=== PATIENT | female | born 1980 | race African-American/Black ===

== ENCOUNTER 2023-11-26 12:31 | Emergency (ER) | payer OTHER, SELFPAY ==
--- NOTE | ~2023-11-26 | CT_ITS ---
EXAMINATION: CT ABDOMEN AND PELVIS WITHOUT CONTRAST CLINICAL INFORMATION: Dysuria, back pain COMPARISON: None available. TECHNIQUE: Multidetector volumetric imaging was performed from the superior aspect of the liver through the pubic symphysis. Sagittal and coronal reformatted images were obtained on the technologist's workstation. This CT examination was performed using dose optimization techniques as appropriate, variously including the following: *Automated exposure control *Adjustment of mA and/or kV according to patient size (this includes techniques or standardized protocols for targeted exams where dose is matched to indication/reason for exam; i.e. extremities or head) *Use of iterative reconstruction technique DLP: 552 mGy-cm FINDINGS: LUNG BASES: Unremarkable. ABDOMINAL AND PELVIC WALL: Few midline fat-containing ventral hernias. LIVER AND BILIARY TREE: Few scattered small hepatic cysts. Liver is enlarged measuring 21.1 cm in span. GALLBLADDER: Cholelithiasis without evidence of acute cholecystitis. PANCREAS: Unremarkable. SPLEEN: Unremarkable. ADRENAL GLANDS: Unremarkable. KIDNEYS AND URETERS: Lack of intravenous contrast limits evaluation for pyelonephritis. No hydronephrosis or nephrolithiasis. GASTROINTESTINAL TRACT: Colonic diverticulosis without evidence of diverticulitis. Appendix is not identified with certainty however there are no other findings to suggest appendicitis. VASCULAR: Unremarkable. LYMPH NODES/PERITONEUM: No lymphadenopathy. FREE FLUID: None. BLADDER: Urinary bladder wall thickening with infiltration of the perivesicular fat, recommend correlation with urinalysis and symptoms of cystitis. PELVIC VISCERA: Myomatous uterus. OSSEOUS STRUCTURES: A few small sclerotic densities in the pelvis which may reflect bone islands. CT/CT abdomen pelvis wo IV con IMPRESSION: 1. Urinary bladder wall thickening with infiltration of the perivesicular fat, recommend correlation with urinalysis and symptoms of cystitis. Lack of intravenous contrast limits evaluation for pyelonephritis. 2. Hepatomegaly. 3. Cholelithiasis without evidence of acute cholecystitis. 4. Myomatous uterus. Electronically signed by: Ninfa Au MD 11/26/2023 04:07 PM EDT
[2023-11-26 13:05] VITALS: BP 148/95; PULSE 75; RESP 16; TEMP 36.6; O2SAT 100; BMI 29.1
--- NOTE | 2023-11-26 13:05 | ED.GENADULT ---
HPI - General Adult General Chief complaint: Urogenital-Female Stated complaint: Vaginal discomfort Time Seen by Provider: 11/26/23 16:03 Source: patient and family Mode of arrival: ambulatory Limitations: no limitations History of Present Illness ED Provider: Dr. Darshan Priest HPI narrative: 42-year-old female with no significant past medical history who presents emergency department for evaluation 2 months of urinary frequency, dysuria and incontinence. Patient states that she had a telehealth visit and was diagnosed with urinary tract infection and took a 3 day course of antibiotics which did improve her symptoms while she was on the antibiotics but then her symptoms returned. She states that since that time she has been very busy in his not been able to see her primary care doctor. She states that her symptoms got worse today where she was urinating every 5-10 minutes, she feels a pressure in her lower abdomen. She also feels pressure in her back therefore she came to the emergency department for evaluation. She also states she has had chills. She has been taking Pyridium and ibuprofen for her symptoms. She denied nausea, vomiting or diarrhea. She denied vaginal discharge. Related Data Previous Rx's ?Medication ?Instructions ?Recorded cefuroxime axetil 250 mg tablet 250 mg PO Q12H 10 days #20 tabs 11/26/23 Allergies Allergy/AdvReac Type Severity Reaction Status Date / Time aspirin Allergy Unknown Verified 11/26/23 13:08 Review of Systems Review of Systems: Yes all other systems are reviewed and are negative [facility] Social History Social History Advance Directives: No Advance Directives Information Provided: No Do you have a plan to hurt others: No Plan Physical Exam ED Vital Signs: Vital Signs - 24 hr 11/26/23 13:05 Temperature 97.8 F Pulse Rate 75 Respiratory Rate 16 Blood Pressure 148/95 H Pulse Oximetry 100 Oxygen Delivery Method Room Air BMI result Body Mass Index 29.1 Vital signs did reveal an elevated blood pressure of 148/95 otherwise unremarkable Exam: General: Awake, alert in no distress Head: Normocephalic, atraumatic EENT: PERRL, Lids normal, sclera normal, conjunctiva normal, nose normal , ears normal, throat without erythema or exudates Neck: Supple, no adenopathy Lung: breath sounds symmetric, no wheezing, rales or rhonchi Chest: symmetric movement, nontender Heart: regular rate and rhythm, normal S1, S2 no murmurs or rubs Abdomen: soft, moderate suprapubic tenderness, no rebound, no voluntary or involuntary guarding, normoactive bowel sounds Back: no vertebral tenderness, moderate left CVA tenderness Extremities: no deformities, moves all extremities symmetrically Neuro: Awake, alert, oriented, normal speech Course Course Course Narrative: This is an RME performed by Salvador Cuevas FRENCH DRAWER: Additional HPI, ROS, PE not included below will be deferred to primary provider. Patient is a 42-year-old female presents emergency department with a expressed concern for a bladder infection 2 months. Reports that she did a telehealth visit where she was prescribed an antibiotic, does not recall the name, and Pyridium but reports no change in her symptoms. Reports that she has suprapubic pain and diffuse lower back pain. She has been experiencing urinary incontinence she is unable to control it. Endorsing severe dysuria. States her urine is very cloudy. Denies vaginal discharge or bleeding. LMP 3 weeks ago. Endorses having ongoing chills, not checked a temperature, using ibuprofen around the clock. Denies nausea or vomiting. Denies concern for sexually transmitted infections Plan: Labs, urinalysis Medical Decision Making Medical Decision Making MDM Narrative: 42-year-old female with no significant past medical history who presents emergency department for evaluation 2 months of urinary frequency, dysuria and incontinence associated with chills, suprapubic pain and left flank pain with no vaginal discharge. Patient did complete a 3 day course of antibiotics with a proximally 3-4 days of improvement after finishing the antibiotics but since that time she has had persistent symptoms. She was not been able to see her PCP and was concerned that her symptoms are getting worse today so she came to the emergency department for evaluation. Differential diagnosis: ?Includes but is not limited to cystitis, pyelonephritis, urethritis, pelvic infection, electrolyte abnormalities, anemia Following evaluation was ordered: CBC, CMP, urinalysis, urine test, CT scan of the abdomen pelvis without IV contrast Patient was initially treated with the following: Ibuprofen 400 mg orally, cefuroxime 250 mg orally Course: 16:42 The patient's urinalysis was consistent with a urinary tract infection. The CT scan of the abdomen pelvis did reveal bladder inflammation consistent with acute cystitis with no other findings to explain her symptoms. She does have hepatomegaly and she does drink alcohol several times a week and I told her that she should stop drinking and she will need to follow up with her PCP to discuss the hepatomegaly. Patient's LFTs are normal at this time. Patient also has gallstones and she was aware of this. Patient was started on cefuroxime 250 mg q.12 hours for 10 days. She was also advised to take ibuprofen 400 mg 3 times a day as needed for pain. She was given printed and verbal instructions and discharged home. Admission/Observation Consideration of admission/observation: Escalation of care including admission/observation considered (Yes) Lab Data MDM Lab Attestation statement: I reviewed the patient's lab results. My interpretation patient's laboratory evaluation as follows: CBC was normal. CMP revealed an elevated BUN of 19 and elevated chloride of 112. Creatinine was normal 0.7. Urinalysis was positive for blood, protein and leukocyte esterase. Microscopic revealed 6-10 RBCs, greater than 50 WBCs and 4+ bacteria -this is consistent with urinary tract infection . Urine test was negative. 11/26/23 13:23 11/26/23 13:23 Labs: Lab Results 11/26/23 11/26/23 Range/Units 13:23 13:24 WBC 9.8 (4.8-10.8) X10*3/uL RBC 4.16 L (4.20-5.50) X10*6/uL Hgb 13.6 (12.0-16.0) g/dl Hct 39.7 (37.0-47.0) % MCV 95.4 (80.0-98.0) fL MCH 32.7 (27.0-33.0) pg MCHC 34.3 (31.0-35.0) g/dl RDW 12.5 (11.0-16.0) % Plt Count 367 (160-400) X10*3/uL MPV 9.7 (9.4-12.3) fL Immature Gran % (Auto) 0.5 H (0.0-0.4) % Neut % (Auto) 67.0 (45-73) % Lymph % (Auto) 20.0 (20-40) % Henry % (Auto) 8.2 (2-11) % Eos % (Auto) 3.2 (0-4) % Baso % (Auto) 1.1 (0-2) % Lymph # (Auto) 2.0 (1.2-4.9) X10*3/uL Henry # (Auto) 0.8 (0.1-1.2) X10*3/uL Eos # (Auto) 0.3 (0.0-0.4) X10*3/uL Baso # (Auto) 0.1 (0.0-0.2) X10*3/uL Abs Immat Gran (auto) 0.05 H (0.00-0.03) X10*3/uL Absolute Neuts (auto) 6.5 (2.0-8.3) x10*3/uL Absolute Nucleated RBC 0.000 (0.0-0.012) X10*3/uL Nucleated RBC % (auto) 0.0 (0.0-0.2) /100WBC Sodium 141 (135-145) mmol/L Potassium 4.2 (3.3-5.1) mmol/L Chloride 112 H (96-108) mmol/L Carbon Dioxide 22 (22-29) mmol/L Anion Gap 11 L (12-20) BUN 19 H (9-16) mg/dL Creatinine 0.70 (0.5-1.4) mg/dL Estim Creat Clear Calc 107.9 Estimated GFR > 60 Random Glucose 98 (60-115) mg/dL Calcium 9.3 (8.4-10.2) mg/dL Total Bilirubin 0.4 (0.0-1.0) mg/dL AST 12 (5-31) U/L ALT 18 (0-31) U/L Alkaline Phosphatase 50 (39-117) U/L Total Protein 6.7 (6.5-8.0) g/dL Albumin 4.1 (3.5-5.0) g/dL Urine Color Yellow Urine Appearance Turbid Urine pH 5.5 (5.0-9.0) Ur Specific [place] 1.020 (1.005-1.025) Urine Protein 100 (2+) H (Neg-Trace) mg/dL Urine Glucose (UA) Negative (Negative) mg/dL Urine Ketones Negative (Negative) mg/dL Urine Blood Small (1+) H (Negative) Urine Nitrite Negative (Negative) Ur Leukocyte Esterase Large (3+) H (Negative) Urine RBC 6-10 H (0-2) /HPF Urine WBC >50 H (0-5) /HPF Ur Squamous Epith Cells 3-5 (0-2) /HPF Urine Bacteria 4+ (None Seen) Hyaline Casts 0-2 (0-2) /LPF Urine Test NEGATIVE (NEGATIVE) Radiology Impression Discussion of test interpretation with radiology: I have reviewed the radiologist's reading. Radiologist Impression: CT abdomen pelvis wo IV con IMPRESSION: 1. Urinary bladder wall thickening with infiltration of the perivesicular fat, recommend correlation with urinalysis and symptoms of cystitis. Lack of intravenous contrast limits evaluation for pyelonephritis. 2. Hepatomegaly. 3. Cholelithiasis without evidence of acute cholecystitis. 4. Myomatous uterus. Dictated By: Ninfa uA MD Independent Historian Clinical information obtained from an independent historian. History obtained from or confirmed by: Spouse Prescription Management I considered prescription management with: Antibiotic Discharge Plan Discharge Clinical Impression: Bladder infection, acute Patient Disposition: Home, Self-Care Instructions: Acute Urinary Retention in Women (ED) Additional Instructions: Your blood work was unremarkable, your kidney function and liver tests were normal. Your urine tests were consistent with a urinary tract infection, you had greater than 50 white blood cells and 4+ bacteria in your urine. Your urine test was negative CT scan of your abdomen pelvis without IV contrast did reveal inflammation of your bladder which is consistent with a bladder infection and this is also supported by your urine test. Take cefuroxime 250 mg pills, 1 pill every 12 hours for 10 days. Take ibuprofen 200 mg pills, 2 pills every 6 hours as needed for pain or fever. Take Tylenol (acetaminophen) 500 mg pills, 2 pills every 6 hours as needed for pain or fever. Follow-up with your doctor in 2 days. Please return to the emergency department if your symptoms get worse or if you develop any symptoms that are concerning to you. The CT scan did reveal 3 other incidental findings which include a large liver, stones in your gallbladder and fibroids in her uterus. You should discuss these findings with your primary care doctor. You doctor may want to follow your liver tests to make sure that you are not developed beginning liver damage. It is very important that you stop drinking alcohol since this could be a cause of your large liver and can lead to cirrhosis of the liver if you continue to drink. You can check your urine culture results on the patient portal, bacteria usually takes 3-4 days to grow out of your urine. If you develop a bacteria that is resistant to cefuroxime (this is a cephalosporins similar to ceftriaxone and cephalexin), the emergency department should contact you and change the medication. CT abdomen pelvis wo IV con IMPRESSION: 1. Urinary bladder wall thickening with infiltration of the perivesicular fat, recommend correlation with urinalysis and symptoms of cystitis. Lack of intravenous contrast limits evaluation for pyelonephritis. 2. Hepatomegaly. 3. Cholelithiasis without evidence of acute cholecystitis. 4. Myomatous uterus. Electronically signed by: Ninfa Au MD 11/26/2023 04:07 PM EDT RP Dictated By: Ninfa Au MD Signed By: <Electronically signed by Ninfa Au MD in OV> Prescriptions: New cefuroxime axetil 250 mg tablet 250 mg PO Q12H 10 Days Qty: 20 0RF Print Language: Amharic
[2023-11-26 13:29] LABS: MANUAL DIFF FLAG NO
[2023-11-26 13:31] LABS: Basophils Absolute Auto 0.1 X10*3/uL (0.0-0.2); Basophils Percent Auto 1.1 % (0-2); Eosinophils Absolute Auto 0.3 X10*3/uL (0.0-0.4); Eosinophils Percent Auto 3.2 % (0-4); Hematocrit 39.7 % (37.0-47.0); Hemoglobin 13.6 g/dl (12.0-16.0); Imm Gran Abs Auto 0.05 X10*3/uL (0.00-0.03); Imm Gran Pct Auto 0.5 % (0.0-0.4); Mean Corpuscular HGB Conc 34.3 g/dl (31.0-35.0); Mean Corpuscular Hemoglobin 32.7 pg (27.0-33.0); Mean Corpuscular Volume 95.4 fL (80.0-98.0); Mean Platelet Volume 9.7 fL (9.4-12.3); Monocytes Absolute Auto 0.8 X10*3/uL (0.1-1.2); Monocytes Percent Auto 8.2 % (2-11); Neutrophils Absolute Auto 6.5 x10*3/uL (2.0-8.3); Platelet Count 367 X10*3/uL (160-400); Red Blood Count 4.16 X10*6/uL (4.20-5.50); Red Cell Distribution Width 12.5 % (11.0-16.0); White Blood Count 9.8 X10*3/uL (4.8-10.8)
[2023-11-26 13:32] LABS: Appearance Urine Turbid; Color Urine Yellow; Glucose Urine UA Negative (Negative); Leukocyte Esterase Urine Large (3+) (Negative); Nitrite Urine Negative (Negative); PH 5.5 (5.0-9.0); UMIC TRIGGER UACC YES; UPreg QC Valid YES; Urine Blood Small (1+) (Negative); Urine Ketones Negative (Negative); Urine Pregnancy NEGATIVE (NEGATIVE); Urine Protein 100 (2+) mg/dL (Neg-Trace)
[2023-11-26 13:36] LABS: Bacteria Urine 4+ (None Seen); Hyaline Casts Urine 0-2 /LPF (0-2); UACC Culture Trigger YES; WBC Urine >50 /HPF (0-5)
[2023-11-26 13:47] LABS: Alanine Aminotransferase 18 U/L (0-31); Albumin Level 4.1 g/dL (3.5-5.0); Alkaline Phosphatase 50 U/L (39-117); Anion Gap 11 (12-20); Aspartate Amino Transferase 12 U/L (5-31); Bilirubin Total 0.4 mg/dL (0.0-1.0); Blood Urea Nitrogen 19 mg/dL (9-16); Calcium 9.3 mg/dL (8.4-10.2); Carbon Dioxide 22 mmol/L (22-29); Chloride 112 mmol/L (96-108); Creatinine Clr Calc Pharmacy 107.9; Estimated Glomerular Filt Rate > 60; Glucose Random 98 mg/dL (60-115); Potassium 4.2 mmol/L (3.3-5.1); Sodium 141 mmol/L (135-145); Total Protein 6.7 g/dL (6.5-8.0)
[2023-11-26 16:43] VITALS: BP 138/83; PULSE 54; RESP 20; TEMP 36.7; O2SAT 100
[2023-11-26] MEDS: cefuroxime axetiL 250 MG TABLET PO (17:15)
[2023-11-26] MEDS: Ibuprofen 400 MG TABLET PO (17:15)
--- NOTE | 2023-11-26 17:20 | PC.NURSE ---
no change in assessment from triage. sx increase with ambulation/standing. ismore comfortable in bed. eager to leave and find real food . will continue to push PO fluids.
[2023-11-26 17:22] VITALS: BP 138/83; PULSE 54; RESP 20; TEMP 36.7; O2SAT 100
== END 2023-11-26 17:22 | disposition home or self-care (01) ==
PROVIDERS: Nurse Practitioner Family; Emergency Provider Emergency Medicine Emergency Medical Services
DX: N30.90 Cystitis, unspecified without hematuria (principal); R10.2 Pelvic and perineal pain; R35.0 Frequency of micturition; R30.0 Dysuria; R32 Unspecified urinary incontinence; Z79.899 Other long term (current) drug therapy
CPT/HCPCS: 36415; 74176; 80053; 81001; 81025; 85025; 87086; 87088; 87186; 99284

== ENCOUNTER 2024-05-22 17:10 | Emergency (ER) | payer OTHER, SELFPAY ==
[2024-05-22 17:20] VITALS: BP 127/55; PULSE 90; RESP 19; TEMP 37.2; O2SAT 98; BMI 28.6
--- NOTE | 2024-05-22 17:20 | ED_ITS ---
HPI - General Adult General Chief complaint: Upper Respiratory Symptoms Stated complaint: fever 103, dizzy, impaired vision Time Seen by Provider: 05/22/24 20:15 Source: patient, RN notes reviewed and old records reviewed Mode of arrival: ambulatory Limitations: no limitations History of Present Illness ED Provider: Ja CHAUDHRY narrative: 43-year-old female presents for evaluation of multiple complaints including body aches, congestion, cough, fevers, dizziness and headache. Her symptoms started yesterday and worsened throughout the day today. Patient denies any sick contacts. She endorses nausea, vomiting Patient reports her pain as a 12/20 Related Data Previous Rx's ?Medication ?Instructions ?Recorded cefuroxime axetil 250 mg tablet 250 mg PO Q12H 10 days #20 tabs 11/26/23 oseltamivir 75 mg capsule (Tamiflu) 75 mg PO Q12H 5 days #10 caps 05/22/24 Allergies Allergy/AdvReac Type Severity Reaction Status Date / Time aspirin Allergy Unknown Verified 05/22/24 17:22 Review of Systems 2 Constitutional: Constitutional: Reports body ache(s), Reports chills, Reports fever(s), Reports headache(s), Reports lethargy, Reports malaise and Reports weakness ENT: Reports headache(s) and Reports sore throat Cardiovascular: Cardiovascular: Denies chest pain and Denies dyspnea Respiratory: Respiratory: Reports cough and Denies dyspnea Gastrointestinal: Gastrointestinal: Denies abdominal pain, Reports diarrhea, Reports nausea and Reports vomiting Musculoskeletal: Musculoskeletal: Reports back pain and Reports myalgias Integumentary/Breasts: Skin/Breast: Denies rash Neurologic: Reports headache(s) and Reports weakness PMFSH Social History Social History Advance Directives: No Advance Directives Information Provided: Yes Do you have a plan to hurt others: No Plan Physical Exam ED Vital Signs: Vital Signs - 24 hr 05/22/24 17:20 05/22/24 20:17 05/22/24 20:26 Temperature 99 F 98 F 98 F Pulse Rate 90 81 81 Respiratory Rate 19 19 19 Blood Pressure 127/55 L 121/73 121/73 Pulse Oximetry 98 98 98 Oxygen Delivery Method Room Air Room Air BMI result Body Mass Index 28.6 Const General: healthy appearing, comfortable, no acute distress, alert and awake Nutritional Appearance: well nourished Orientation/consciousness: patient oriented x3 HENMT Head: Yes normocephalic and Yes atraumatic Eyes Eyelids: Yes eyelids normal Conjunctivae: conjunctivae normal Sclerae: sclerae normal Corneas: corneas normal Pupils: Equal, round and reactive pupils present EOM: EOMs intact bilaterally Neck Neck: Yes full ROM Resp Effort & Inspection: normal respiratory effort, able to speak in complete sentences and not labored Cardio Rate: regular rate Rhythm: regular rhythm Skin General skin exam: elasticity normal Neuro General: patient oriented x3 Cranial nerves: Yes Equal, round and reactive pupils present and Yes Bilaterally intact EOM present Cognition (Neuro): normal cognition Extrem Other: Moving all extremities well without any obvious deformities Course Course Course Narrative: RME, this is a rapid medical exam performed by Dmitry Peres please refer to primary provider for complete H&P- 43 year old female presents for evaluation of fevers as high as 103, body aches, cough, weakness and headaches. She endorses pain all over as well as blurry vision. She took a negative COVID test at home. She also states her granddaughter was sick recently. She is afebrile in triage. Plan for labs and viral swabs Medical Decision Making Medical Decision Making [facility] Narrative: 43-year-old healthy female presents for evaluation of multiple complaints that are consistent with a viral illness. She had labs, viral testing which was significant for influenza B. This does explain all of her symptoms. She reports fevers at home but is afebrile in triage. She is not tachycardic or hypotensive. Differential Diagnosis Differential Diagnoses: The differential diagnosis associated with the presentation includes Influenza COVID-19 GAYLE Gastroenteritis Lab Data 05/22/24 18:02 05/22/24 18:02 Labs: Lab Results 05/22/24 Range/Units 18:02 WBC 5.1 (4.8-10.8) X10*3/uL RBC 4.25 (4.20-5.50) X10*6/uL Hgb 13.7 (12.0-16.0) g/dl Hct 39.3 (37.0-47.0) % MCV 92.5 (80.0-98.0) fL MCH 32.2 (27.0-33.0) pg MCHC 34.9 (31.0-35.0) g/dl RDW 12.3 (11.0-16.0) % Plt Count 277 (160-400) X10*3/uL MPV 9.9 (9.4-12.3) fL Immature Gran % (Auto) 0.4 (0.0-0.4) % Neut % (Auto) 70.7 (45-73) % Lymph % (Auto) 12.2 L (20-40) % [place] % (Auto) 15.7 H (2-11) % Eos % (Auto) 0.4 (0-4) % Baso % (Auto) 0.6 (0-2) % Lymph # (Auto) 0.6 L (1.2-4.9) X10*3/uL [place] # (Auto) 0.8 (0.1-1.2) X10*3/uL Eos # (Auto) 0.0 (0.0-0.4) X10*3/uL Baso # (Auto) 0.0 (0.0-0.2) X10*3/uL Abs Immat Gran (auto) 0.02 (0.00-0.03) X10*3/uL Absolute Neuts (auto) 3.6 (2.0-8.3) x10*3/uL Absolute Nucleated RBC 0.000 (0.0-0.012) X10*3/uL Nucleated RBC % (auto) 0.0 (0.0-0.2) /100WBC Sodium 139 (135-145) mmol/L Potassium 4.0 (3.3-5.1) mmol/L Chloride 112 H (96-108) mmol/L Carbon Dioxide 19 L (22-29) mmol/L Anion Gap 12 (12-20) BUN 12 (9-16) mg/dL Creatinine 0.76 (0.5-1.4) mg/dL Estim Creat Clear Calc 97.5 Estimated GFR > 60 Random Glucose 92 (60-115) mg/dL Calcium 9.1 (8.4-10.2) mg/dL Total Bilirubin 0.2 (0.0-1.0) mg/dL AST 20 (5-31) U/L ALT 28 (0-31) U/L Alkaline Phosphatase 57 (39-117) U/L Total Protein 7.7 (6.5-8.0) g/dL Albumin 4.4 (3.5-5.0) g/dL Lipase 16 (8-78) U/L Beta HCG, Quant < 2 mIU/mL Urine Color Yellow Urine Appearance Clear Urine pH 8.5 (5.0-9.0) Ur Specific [place] 1.010 (1.005-1.025) Urine Protein Negative (Neg-Trace) mg/dL Urine Glucose (UA) Negative (Negative) mg/dL Urine Ketones Negative (Negative) mg/dL Urine Blood Negative (Negative) Urine Nitrite Negative (Negative) Ur Leukocyte Esterase Negative (Negative) Urine RBC 0-2 (0-2) /HPF Urine WBC 0-5 (0-5) /HPF Ur Squamous Epith Cells 3-5 (0-2) /HPF Urine Bacteria Trace (None Seen) Hyaline Casts 0-2 (0-2) /LPF Influenza Type A (PCR) NEGATIVE (Negative) Influenza Type B (PCR) POSITIVE A (Negative) RSV RNA Qual (PCR) NEGATIVE (Negative) SARS-CoV-2 RNA (RT-PCR) NEGATIVE (Negative) S. pyogenes GrpA JAIME Negative (Negative) Discharge Plan Discharge Clinical Impression: Influenza Patient Disposition: Home, Self-Care Instructions: Influenza (ED) Additional Instructions: You tested positive for influenza B. Your blood work was reassuring. Take Tamiflu twice daily for 5 days. Hydrate well. Use ibuprofen/Tylenol for fevers, headache, body aches Prescriptions: New oseltamivir [Tamiflu] 75 mg capsule 75 mg PO Q12H 5 Days Qty: 10 0RF No Action cefuroxime axetil 250 mg tablet 250 mg PO Q12H 10 Days Qty: 20 0RF Interventions: ED Discharge Assessment Last Done: 05/22/24 20:26 Discharge Date/Time: 05/22/24 20:27 Print Language: Citizen Of [place]
[2024-05-22 18:06] LABS: MANUAL DIFF FLAG NO
[2024-05-22 18:08] LABS: White Blood Count 5.1 X10*3/uL (4.8-10.8)
[2024-05-22 18:09] LABS: Basophils Percent Auto 0.6 % (0-2); Eosinophils Percent Auto 0.4 % (0-4); Hematocrit 39.3 % (37.0-47.0); Hemoglobin 13.7 g/dl (12.0-16.0); Imm Gran Abs Auto 0.02 X10*3/uL (0.00-0.03); Imm Gran Pct Auto 0.4 % (0.0-0.4); Lymphocytes Absolute Auto 0.6 X10*3/uL (1.2-4.9); Lymphocytes Percent Auto 12.2 % (20-40); Mean Corpuscular HGB Conc 34.9 g/dl (31.0-35.0); Mean Corpuscular Hemoglobin 32.2 pg (27.0-33.0); Mean Corpuscular Volume 92.5 fL (80.0-98.0); Mean Platelet Volume 9.9 fL (9.4-12.3); Monocytes Absolute Auto 0.8 X10*3/uL (0.1-1.2); Monocytes Percent Auto 15.7 % (2-11); Neutrophils Absolute Auto 3.6 x10*3/uL (2.0-8.3); Neutrophils Percent Auto 70.7 % (45-73); Platelet Count 277 X10*3/uL (160-400); Red Blood Count 4.25 X10*6/uL (4.20-5.50); Red Cell Distribution Width 12.3 % (11.0-16.0)
[2024-05-22 18:10] LABS: Appearance Urine Clear; Color Urine Yellow; Glucose Urine UA Negative (Negative); Leukocyte Esterase Urine Negative (Negative); Nitrite Urine Negative (Negative); PH 8.5 (5.0-9.0); Urine Blood Negative (Negative); Urine Ketones Negative (Negative); Urine Protein Negative (Neg-Trace)
[2024-05-22 18:15] LABS: Bacteria Urine Trace (None Seen); Hyaline Casts Urine 0-2 /LPF (0-2); RBC Urine 0-2 /HPF (0-2); WBC Urine 0-5 /HPF (0-5)
[2024-05-22 18:17] LABS: IDNOW Serial# 58CA691E; Strep A Nucleic Acid Negative (Negative)
[2024-05-22 18:33] LABS: Alanine Aminotransferase 28 U/L (0-31); Albumin Level 4.4 g/dL (3.5-5.0); Alkaline Phosphatase 57 U/L (39-117); Anion Gap 12 (12-20); Aspartate Amino Transferase 20 U/L (5-31); Bilirubin Total 0.2 mg/dL (0.0-1.0); Blood Urea Nitrogen 12 mg/dL (9-16); Calcium 9.1 mg/dL (8.4-10.2); Carbon Dioxide 19 mmol/L (22-29); Chloride 112 mmol/L (96-108); Creatinine Clr Calc Pharmacy 97.5; Estimated Glomerular Filt Rate > 60; Glucose Random 92 mg/dL (60-115); Lipase 16 U/L (8-78); Sodium 139 mmol/L (135-145); Total Protein 7.7 g/dL (6.5-8.0)
[2024-05-22 18:40] LABS: HCG Quantitative < 2 mIU/mL
[2024-05-22 18:45] LABS: Influenza A PCR NEGATIVE (Negative); Influenza B PCR POSITIVE (Negative); Resp Syncy Virus RNA Qual PCR NEGATIVE (Negative); SARS COV2 PCR INHOUSE NEGATIVE (Negative)
[2024-05-22 20:17] VITALS: BP 121/73; PULSE 81; RESP 19; TEMP 36.6; O2SAT 98
--- OUTSIDE RECORDS SUMMARY | 2024-05-22 20:21 | XMS_ITS | Data Portability ---
Author Organization [address] Address [address] [place] [address] Assessment No assessment recorded. Plan of Treatment Reminders Order Date Submit Date Provider Last Modified By Organization Details Last Modified Time Details Appointments None record ed. Lab None record ed. Referral None record ed. Procedures None record ed. Surgeries None record ed. Imaging None record ed. Medication Orders None record ed. Patient TargetsNo targets recorded. Patient InstructionsNo instructions recorded. Reason for Referral None Reported. Medical Equipment None Reported. Medications Name Sig Start Date Stop Date Status Note LastModified by Organization Details LastModified Time amoxicillin 500 mg capsule TAKE 1 CAPSULE BY MOUTH 3 TIMES A DAY active Not Available Not Available No t Available Vitals None Recorded Social History None recorded. Functional Status None recorded. Mental Status None recorded. Family History Nothing Reported. Medical History No medical history recorded. Gynecological HistoryNo gynecological history recorded. Obstetrics History GPAL:G 0 P 0 0 0 0 Past Encounters Encounter ID Performer Location Encounter Start Date Encounter Closed Date Diagnosis/Indication Diagnosis SNOMED-CT Code Diagnosis ICD10 Code Diagnosis Note [id number] [address] [place] [address] 10/04/2018 08:19:08 10/04/2018 09:01:02 [id number] [address] [facility] [address] [place] [address] 11/28/2017 08:29:04 11/28/2017 11:01:21 [id number] [address] [facility] [address] [place] [address] 01/06/2018 12:31:56 01/06/2018 12:55:15 [id number] [facility] [address] [place] [address] 05/05/2022 17:08:29 06/14/2022 20:09:11 Left without being seen [id number] 9102 Z53.21 Health Concerns Section Related Observation LastModified by Organization Detai ls LastModified Time None Recorded Concern Status LastModified by Organization Details LastModified Time None Recorded Advance Directives Directive None Recorded Payers Encounter Date Sequence Insurance Name Policy Number Policy Ronquillo Covered Member ID Ronquillo Member ID Guarantor Name 11/28/2017 1 [facility] HE[facility] NET PLAN (MEDICAID HMO) DIANNE Voss [id number] Raysa Voss 01/06/2018 1 [facility] PLAN (MEDICAID HMO) DIANNE Voss [id number] Raysa Voss 10/04/2018 1 [facility] PLAN (MEDICAID HMO) DIANNE Voss [id number] Raysa Voss 05/05/2022 OC-ESCREEN Raysa Voss [id number] Raysa Voss OBGyn Episode No OBEpisode recorded.
--- OUTSIDE RECORDS SUMMARY | 2024-05-22 20:21 | XMS_ITS | Encounter Summary ---
Author Organization [facility] Address [address] [place] [address] Care Team Providers Care Barrel Rifler Button Name Role Phone Hilton Em MD Primary Care Provider Encounter Details Date Type Department Care Team Description 06/01/2023 Telephone OBGYN - [address] [id number] Larisa Campa[address] [address] Social History Tobacco Use Types Packs/Day Years Used Date Smoking Tobacco: Every Day Cigarettes 0.5 15 Smokeless Tobacco: Never Alcohol Use Standard Drinks/Week Comments Yes 0 (1 standard drink = 0.6 oz pur e alcohol) occasionally Sex Assigned at Date Recorded Not on file Job Start Date Occupation Industry Not on file Not on file Not on file documented as of this encounter Miscellaneous Notes * Telephone Encounter - Sherlyn Norton L.P.N. - 06/01/2023 1:45 PM EDT I spoke with patient she is aware of + BV result. Patient is requesting po tx. Can you please send Flagyl to her pharmacy? Thank you. The risks and benefits of this medication were discussed with the patient. The patient has been advised to abstain from use of alcohol or vinegar based products while taking this medication. The patient understands the potential side effects and basic interactions of this medication. The patient isasked to call our office if they begin to experience any difficulties with this medication. * Telephone Encounter - Yumiko Weiss - 06/01/2023 11:59 AM EDT Patient calling back * Telephone Encounter - Nubia Beaver M.A. - 06/01/2023 11:54 AM EDT LVM for patient to cb in regards to results. * Telephone Encounter - Nubia Beaver M.A. - 06/01/2023 11:54 AM EDT ----- Message from Netta Clark CNM sent at 06/01/2023 11:25 AM EDT ----- Please let pt know her culture shows she has BV. I have sent a Rx for Metrogel to her pharmacy. documented in this encounter Plan of Treatment Not on file documented as of this encounter Visit Diagnoses Not on filedocumented in this encounter Care Teams Barrel Rifler Button Relationship Specialty Start Date End Date Hilton Em MD [address] [place] [id number] PCP - General Internal Medicine 03/27/23 documented as of this encounter
--- OUTSIDE RECORDS SUMMARY | 2024-05-22 20:21 | XMS_ITS ---
Author Name [facility] Organization Unknown Problems Problem Status Onset Date Problem Type Date of Resolution Source Family history of cardiomyopathy active EncounterDiagnosisAct [facility] Encounters Encounter Type Encounter Reason Primary Diagnosis Location Date Ambulatory [facility] 09/08/2021 Care Team Organization Name Specialty Phone Email Start Date End [facility] 09/09/2021
--- OUTSIDE RECORDS SUMMARY | 2024-05-22 20:21 | XMS_ITS | Clinical Summary ---
Author Organization Patient Business Ser [facility] Address [address] [place] [address] Care Team Providers Care Wholesale Loan Processor Name Role Phone Hilton Em MD Primary Care Provider Allergies Active Allergy Reactions Criticality Noted Date Comments Acetaminophen 07/09/2015 nausea Citalopram Headache 10/06/2015 Medications polyethylene glycol (MIRALAX) 17 gram packet Take 17 g by mouth 1 (one) time each day if needed for constipatio n. 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 Anxiety 09/08/2015 Immunizations Name Administration Dates Next Due Hepatitis B (Pqksfby-H-Kvdhz , Recombivax HB-Adult) 19yo and older 08/17/2016,03/02/2016,01/22/2016 Tdap Tetanus diptheria acell ular pertussis (Boostrix; Adacel) 7yo and older 07/09/2015 Surgical History Surgery Date Site/Laterality Comments APPENDECTOMY 03/13/1992 PROCEDURE: HISTORICAL APPENDECTOMY TONSILLECTOMY 03/13/1993 PROCEDURE: HISTORICAL TONSILLECTOMY BOWEL RESECTION 03/13/2010 PROCEDURE: HISTORICAL BOWEL RESECTION; COMMENT: perf diverticulitis descending colon TUBAL LIGATION 03/13/2009 PROCEDURE: HISTORICAL TUBAL LIGATION ECTOPIC SURGERY 03/13/2009 PROCEDURE: HISTORICAL ECTOPIC SURGERY CERVICAL BIOPSY W/ LOOP ELECTRODE EXCISION 03/13/2008 PROCEDURE: CERVIAL LEEP CONE BIOPSY [facility] PATH[facility]Y EX Medical History Medical History Date Comments Patient denies medical problems DX:Patient denies medical problems TOA (tubo-ovarian abscess) 03/13/2011 DX:TO A (tubo-ovarian abscess) Abdominal pain DX:Abdominal bhaskar n Change in stool caliber DX:Islas e in stool caliber Left lower quadrant pain DX:Left lower quadrant pain Elevated white blood cell count DX:Elevated white blood cell count History of abdominal surgery DX: History of abdominal surgery Family History Medical History Relation Name Comments Breast cancer Paternal Grandmother Cataracts Paternal Grandmother Blindness Neg Hx Glaucoma Neg Hx Macular degeneration Neg Hx Strabismus Neg Hx Relation Name Status Comments Brother Alive Daughter Alive Father Alive alcohol abuse Mother Alive Depression, anx iety, phobias Paternal Grandmother Son 1 Alive Son 2 Alive Social History Tobacco Use Types Packs/Day Years Used Date Smoking Tobacco: Every Day Cigarettes Smokeless Tobacco: Never Alcohol Use Standard Drinks/Week Comments Yes 0 (1 standard drink = 0.6 oz pur e alcohol) Comments Unknown Sex and Gender Information Value Date Recorded Sex Assigned at Not on file Legal Sex Female 7:17 PM EDT Gender Identity Not on file Sexual Orientation Not on file Obstetrics History Last Filed Vital Signs Vital Sign Reading Time Taken Comments Blood Pressure 114/70 08/09/2023 3:50 PM EDT Pulse 56 08/09/2023 3:50 PM EDT Temperature - - Respiratory Rate - - Oxygen Saturation - - Inhaled Oxygen Concentration - - Weight 81.6 kg (180 lb) 08/09/2023 3:50 PM EDT Height 167.6 cm (5' 6 ) 08/09/2023 3:50 PM EDT Body Mass Index 29.05 08/09/2023 3:50 PM EDT Plan of Treatment Upcoming Encounters Date Type Department Care Team (Late st Contact Info) Description 06/03/2024 11:10 AM EDT Appointment Radiology Department [address] [phone] Health Maintenance Due Date Last Done Comments Hepatitis A Vaccines (1 of 2 - Risk 2-dose series) 12/18/1998 Pneumococcal Vaccine: Pediatrics (0 to 5 Years) and At-Risk Patients (6 to 64 Years) (1 of 2 - PCV) 12/18/1998 Depression Screening 10/10/2023 HIV Screening 10/10/2023 Social Influencers of Health Screening 10/10/2023 COVID-19 Vaccine (3 - 2023- season) 2023 08/20/2020, 07/22/2020 Influenza Vaccine (#1) 2023 DTaP,Tdap,and Td Vaccines (2 - Td or Tdap) 07/08/2025 07/09/2015 Breast Cancer Screening 07/19/2025 07/20/19 24, 07/20/2023, 06/29/2023, Additional history exists Cervical Cancer Screening: HPV 05/30/2028 05/31/2023 Cholesterol Screening (Lipid Panel) 08/08/2028 08/09/2023, 08/09/2023 Hepatitis B Vaccines Completed 08/17/2016, 03/02/2016, 01/22/2016 Hepatitis C Screening Completed 05/31/2023 HIB Vaccines Aged Out No longer eligi ble based on patient's age to complete this topic HPV Vaccines Aged Out No longer eligi ble based on patient's age to complete this topic IPV Vaccines Aged Out No longer eligi ble based on patient's age to complete this topic MMR Vaccines Aged Out No longer eligi ble based on patient's age to complete this topic Meningococcal ACWY Vaccine Aged Out N o longer eligible based on patient's age to complete this topic Meningococcal B Vacine Aged Out No lo nger eligible based on patient's age to complete this topic RSV Immunization Patients Under 20 months Aged Out No longer eligible based on patient's age to complete this topic Varicella Vaccines Aged Out No longer eligible based on patient's age to complete this topic Procedures Procedure Name Priority Date/Time Associated Diagnosis Comments LIPID PANEL Routine 08/09/2023 DX MAMMO INCL CAD UNI Routine 07/20/2023 1:28 PM EDT Other abnormal and inconclusive findings on diagnostic imaging of breast HM HPV Routine 05/31/2023 HEPATITIS C SCREENING Routine 05/31/2023 from Last 3 Months or Most Recently Relevant to Health Maintenance Results * (ABNORMAL) Lipid panel (08/09/2023) [facility] LDL/HDL Ratio 3 0 - 4 Triglycerides 182(A) 0 - 150 mg/dL Cholesterol 168 0 - 200 mg/dL HDL 54 >=40 mg/dL LDL Cholesterol 78 0 - 100 mg/dL Blood Venous blood specimen / Unknown Result [facility] Historical Provider LAB BLOOD ORDERABLES Bushra l Result * DX MAMMO INCL CAD UNI (07/20/2023 1:28 PM EDT) Anatomical Region Laterality Modality Mammography 07/20/2023 1:24 PM EDT Narrative 07/20/2023 1:31 PM EDT This is a summary report. The complete report is available in the patient's medical record. If you cannot access the medical record, please contact the sending organization for a detailed fax or copy. Please refer to the combined ultrasound-guided core biopsy and diagnostic mammogram report. Procedure Note Mary Romero MD - 10/30/2023 This is a summary report. The complete report is available in thepatient's medical record. If you cannot access the medical record, pleasecontact the sending organization for a detailed fax or copy. Please refer to the combined ultrasound-guided core biopsy and diagnosticmammogram report. Result [facility] Larisa MICHEL IMG BI PROCEDURES Final Resu lt * Cervical Cancer Screening: HPV (05/31/2023) [facility] Cervical Cancer Screening: HPV Negative, abstracted Historical Provider HEALTH MAINTENANCE Final Result * Hepatitis C Screening (05/31/2023) [facility] Hepatitis C Screening Abstracted Historical Provider HEALTH MAINTENANCE Final Result from Last 3 Months or Most Recently Relevant to Health Maintenance Care Teams Wholesale Loan Processor Relationship Specialty Start Date End Date Hilton mE MD [address] [place] [address] [facility] - General 03/27/23
--- OUTSIDE RECORDS SUMMARY | 2024-05-22 20:21 | XMS_ITS | Encounter Summary ---
Author Organization [facility] Address [address] [place] [address] Care Team Providers Care Licensed Real Estate Broker Name Role Phone Hilton Em MD Primary Care Provider Reason for Visit * Reason Onset Date Comments Prior Authorization 03/29/2023 CT scan abd and pelvis Encounter Details Date Type Department Care Team Description 03/29/2023 Telephone Adult Medicine [address] [address] Oscar Aguillon PA-C [address] [place] [address] [address] [place] [address] Prior Authorization (CT scan abd and pelvis) Social History Tobacco Use Types Packs/Day Years [...] encounter Miscellaneous Notes * Telephone Encounter - Twin Jones PA-C - 03/30/2023 9:46 AM EST Yes that would be okay will place new order * Telephone Encounter - Chelly Pop - 03/30/2023 9:30 AM EST RAINA Willis has ordered a ct scan abd and pelvis with contrast. I just received an auth for CT abd and pelvis without contrast that was ordered by you. Oscar asked me to ask you if it is ok to change your order to with contrast? Thank you, Chelly Gillespie auth dept [phone] * Telephone Encounter - Oscar Aguillon PA-C - 03/29/2023 1:06 PM EST Patient needs to have a CAT scan with contrast and see if the insurance will approve his order withcontrast or if he has objections to his order being changed, then that orders should be canceled byMichael and my order should be in its place. * Telephone Encounter - Chelly Pop - 03/29/2023 11:37 AM EST RAINA Paul Ordered a ct scan abd and pelvis without contrast yesterday and is still pending with insurance for approval. Unable to request another ct abd and pelvis at this time. Do you want me to try and change his auth to with contrast if it is approved? Thank you, Chelly Gillespie auth dept [phone] documented in this encounter Plan of Treatment Scheduled Orders Name Type Priority Associated Diagnoses Orde r Schedule AR THERAPEUTIC PROPHYLACTIC/DX INJECTION SUBQ/IM Immunizations /Injection Routine Gonorrhea Gonococcal infection (acute) of lower genitourinary tract 1 Occurrences starting 03/30/2023 until 03/29/2024 documented as of this encounter Visit Diagnoses Diagnosis Gonorrhea- Primary Gonococcal infection (acute) of lower genitourinary tract Gonococcal infection (acute) of lower genitourinary tract LLQ pain Abdominal pain, left lower quadrant documented in this encounter Care Teams Licensed Real Estate Broker Relationship Specialty Start Date End Date Hilton Em MD [address] [place] [id number] PCP - General Internal Medicine 03/27/23 documented as of this encounter
--- OUTSIDE RECORDS SUMMARY | 2024-05-22 20:21 | XMS_ITS | Encounter Summary ---
Author Organization [facility] Address [address] [place] [address] Care Team Providers Care Classroom Paraprofessional Name Role Phone Azucena Auguste DO Primary Care Pro vider Unavailable Esthela Romeo MD Primary Care Provider Hilton Alcantara MD Primary Care Provider Reason for Visit * Reason Onset Date Comments Medication, Reaction To 07/26/2019 Encounter Details Date Type Department Care Team Description 07/26/2019 Pt. Non Urgent Medic al Question Adult Medicine [address] [address] Azucena Auguste DO Social History Tobacco Use Types Packs/Day Years [...] encounter Miscellaneous Notes * Telephone Encounter - Jennie Messer M.A. - 07/26/2019 10:26 AM EDTFrom: Raysa Voss To: Azucena Izquierdo DO Sent: 07/26/2019 10:25 AM EDT Subject: Side effects of meds I need a nurse or Sara to call me back today. I???m having some weird side effects from meds documented in this encounter Plan of Treatment Not on file documented as of this encounter Visit Diagnoses Not on filedocumented in this encounter Care Teams Classroom Paraprofessional Relationship Specialty Start Date End Date Azucena Auguste DO PCP - General Internal Medicine 06/10/15 11/02/20 Esthela Romeo MD PCP - General Internal Medicine 11/03/20 03/26/23 Hilton Em MD [address] [place] [id number] PCP - General Internal Medicine 03/27/23 documented as of this encounter
--- OUTSIDE RECORDS SUMMARY | 2024-05-22 20:21 | XMS_ITS | Encounter Summary ---
Author Organization [facility] Address [address] [place] [address] Care Team Providers Care Mobile Equipment Mechanic Name Role Phone Hilton Em MD Primary Care Provider Encounter Details Date Type Department Care Team Description 09/24/2023 Night Triage Doc Medical Records [address] [place] [address] Abstract, Provider Social History Tobacco Use Types Packs/Day Years Used Date Smoking Tobacco: Every Day Cigarettes 0.5 15 Smokeless Tobacco: Never Alcohol Use Standard Drinks/Week Comments Yes 0 (1 standard drink = 0.6 oz pur e alcohol) occasionally Sex Assigned at Date Recorded Not on file Job Start Date Occupation Industry Not on file Not on file Not on file documented as of this encounter Plan of Treatment Not on file documented as of this encounter Visit Diagnoses Not on filedocumented in this encounter Care Teams Mobile Equipment Mechanic Relationship Specialty Start Date End Date Hilton Em MD [address] [place] [phone] PCP - General Internal Medicine 03/27/23 documented as of this encounter
--- OUTSIDE RECORDS SUMMARY | 2024-05-22 20:21 | XMS_ITS | Encounter Summary ---
Author Organization [facility] Address [address] [place] [address] Care Team Providers Care Metal Machine Operator Name Role Phone Azucena Auguste DO Primary Care Pro vider Unavailable Esthela Romeo MD Primary Care Provider Hilton Alcantara MD Primary Care Provider Encounter Details Date Type Department Care Team Description 09/10/2015 Release of Information Medical Records [address] [place] [id number] Abstract, Provider Social History Tobacco Use Types [...] on filedocumented in this encounter Care Teams Metal Machine Operator Relationship Specialty Start Date End Date Azucena Auguste DO PCP - General Internal Medicine 06/10/15 11/02/20 Esthela Romeo MD PCP - General Internal Medicine 11/03/20 03/26/23 Hilton Em MD [address] [place] [id number] PCP - General Internal Medicine 03/27/23 documented as of this encounter
[2024-05-22 20:26] VITALS: BP 121/73; PULSE 81; RESP 19; TEMP 36.6; O2SAT 98
== END 2024-05-22 20:27 | disposition home or self-care (01) ==
PROVIDERS: Physician Assistant; Emergency Provider Emergency Medicine Emergency Medical Services
DX: J10.1 Influenza due to other identified influenza virus with other respiratory manifestations (principal); R50.9 Fever, unspecified; R42 Dizziness and giddiness; M79.10 Myalgia, unspecified site; R05.9 Cough, unspecified; R11.2 Nausea with vomiting, unspecified; Z03.818 Encounter for observation for suspected exposure to other biological agents ruled out; Z79.899 Other long term (current) drug therapy
CPT/HCPCS: 0241U; 80053; 81001; 83690; 84702; 85025; 87651; 99283